=== PATIENT | female | born 1970 | race Hispanic/Latino ===

== ENCOUNTER 2016-12-26 06:32 | Day surgery (SDC) | payer OTHER ==
[2016-12-26] VITALS (9 sets, daily range): BP systolic 95–140; BP diastolic 48–74; PULSE 75–89; RESP 12–20; O2SAT 95–100
[~2016-12-26] VITALS: Ht 154.9 cm; Wt 88.2 kg
[~2016-12-26 06:32] MED LIST: CeFAZolin Inj 2 GM in IV Premix 1 EACH IV ONE
[2016-12-26] MEDS ORDERED: Propofol 10,000 mCg/mL 20 mL Inj ONE (06:33)
[2016-12-26] MEDS ORDERED: Dexamethasone 4 mg/mL Inj ONE (06:33)
[2016-12-26] MEDS ORDERED: Ondansetron 2 mg/mL 2 mL Inj ONE (06:33)
[2016-12-26] MEDS ORDERED: fentaNYL-PF 50 mCg/mL 2 mL Inj ONE ×2 (06:33→09:47)
[2016-12-26] MEDS: Lactated Ringer's 1,000 ML IV SCH ×2 (06:45→08:26)
--- NOTE | 2016-12-26 08:15 | PCM.HPANE ---
Patient Data Surgeon Admitting Provider: Attending Provider:Norbert Saha MD Primary Care Physician:Jocy Other Provider:Griffin Valera Anesthesia Reason for Visit Umbilica Hernia Ht/WT & BMI Height (Feet): 5 Height (Inches): 1.00 Weight (Kilograms): 88.200 Body Mass Index 36.00 Allergies Coded Allergies: Glyburide (Verified Allergy, 03/07/12) Past Anesthesia History Anesthesia History: Denies:: Anesthesia Reactions, Fam Anesthesia Reaction, Fam Malignant Hypertherm, Malignant Hyperthermia Diabetes History Hx Diabetes?: No MRSA MRSA: No Medications Hypertension Medication: No Home Meds Incl Beta Nati: No Discontinued Reported Medications Vit/Fe Fumarate/Fa-Expunged Drug, Do (-Expunged Drug, Do Not Renew!)1 Tab Tablet1 Tab PO DAILY 03/07/12 Ferrous Sulfate-Expunged Drug, Do Not Renew! (Feosol-Expunged Drug, Do Not Renew !)325 Mg [id number] ( Po Daily 03/07/12 History History of ENT Problems?: No HEENT History: Denies:: Hearing Problem Denture Type: None Teeth Condition: Within Normal Limits Hx of Heart Problems?: No Cardiovascular History: Positive for:: Irregular Heartbeat (occ palpitations - never sought treatment) Denies:: AICD Edema Heart Murmur Hypertension Pacemaker Peripheral Vascular Hx of Respiratory Problem?: No Respiratory History: Denies:: Asthma COPD Emphysema Oxygen Administration Pneumonia Tuberculosis Use of C-PAP Machine Hx Neurologic Problems?: No Neurological History: Denies:: CVA Headaches Multiple Sclerosis Parkinson's Disease Seizures Hx of GI Problems?: Yes Other GI Pertinent History: umbilical hernia current admission problem Hx of Problems?: No Genitourinary History: Denies:: Kidney Stones Urinary Tract Infection Female Hx: Denies:: Currently Problems with Breasts? Skin History: Denies:: History Skin Disorders? Pressure Ulcers Hx Musculoskeletal Problems?: No Musculoskeletal History: Denies:: Back Injury Fibromyalgia Joint Replacement Musculoskeletal Trauma Myasthenia Gravis Osteoarthritis Rheumatoid Arthritis Systemic Lupus Hx of Psycho/Social Problems?: No Psycho Social History: Denies:: Anxiety Hx Depression Hx Surgeries?: Yes (c sections x3, tubal, abdominoplasty) Hx Any Other Health Problems?: Yes Other History: Denies:: Cancer Thyroid Disease History Blood Transfusions: Positive for:: Accept Blood Products? Denies:: Blood Transfusions Hx Diabetes: No Hx Alcohol Use: YesAlcoholic Drinks Per Day: one drink monthlyHx Substance Use : NoHave You Smoked inLast 12 mo: No Stop/Bang Treated for Sleep Apnea?: No Do You Have a CPAP Machine?: No S-Snoring: Do You Snore Loudly: No T-Tired: feel tired, fatigued: No O-Obsered: Observed not breath: No P-Blood Pressure: treated: No B- Body Mass Index > 35 kg/m2: No A- Age over 50: No N- Neck Large Circumference: No G- Gender Male: No ELAINE Total Score: 0 Risk Assessment Category Category 1A: Patient has history of documented sleep apnea, and HAS NOT received any narcotic, sedative or anesthesia administration during this stay. Category 1B: Patient has history of documented sleep apnea, and HAS received any narcotic , sedative or anesthesia administration during this stay Category 2: Patient has SUSPECTED Obstructive Sleep Apnea, and HAS received any narcotic , sedative or anesthesia administration during this stay. Category 3: Patient has SUSPECTED Obstructive Sleep Apnea and HAS NOT received narcotic, sedative or anesthesia administration during this stay. Category 4: Outpatient in Procedural Areas with known sleep apnea or who screen positive for High Risk via the STOP/BANG questionnaire. Exam Exam Vital Signs Vital Signs Date Time Temp Pulse Resp B/P Pulse Ox O2 Delivery O2 Flow Rate FiO2 12/26/16 07:34 36.3 80 16 140/74 96 Room Air 12/26/16 06:54 36.3 80 16 140/74 96 Room Air General Appearance: Alert, Oriented X3, Cooperative HEENT/AIRWAY: MP 2 Lungs: Clear to Auscultation, Normal Air Movement Heart: Exam Unremarkable Meds/Labs/Diagnostics Admission Meds Current Medications Lactated Ringer's (Lr) 1,000 ml @ 120 mls/hr [id number] IV Last administered on t 06:45; Start 12/26/16 at 05:00; Stop 12/26/16 at 13:19 Plan Impression Patient chart reviewed, patient interviewed and anesthestic plan with risks, benefits, and alternatives discussed, and informed consent obtained. ASA Physical Status: ASA2 Mod Systemic Disease Anesthetic Plan: GA Bene/Risks/Altern/Consents: Yes HP Complete Prior to Induction: Yes Hilario Leonard MD Dec 26, 2016 08:15
[2016-12-26] MEDS ORDERED: Bupivacaine-MPF 0.5% W/EPI 30 mL Inj INFILTRATE ONE (08:35)
--- NOTE | 2016-12-26 09:24 | PCM.DISURG ---
Surgical Discharge Instruction Date of Service Dec 26, 2016 Dates of Hospitalization Date of Hospital Admission Providers Admitting Physician: Primary Care Physician: Jocy Attending Physician: Norbert Saha MD Discharge Diagnosis Discharge Diagnosis Incarcerated umbilical hernia Diet Discharge Diet: No restrictions Activity Discharge Activity-General: No lifting >15 pounds for 2 weeks Dressing and Incisional Care Dressing Care: Allow Steri Stripes to fall off, Remove outer dressing after 24 hrs Hygiene: May shower after (24 hours) Follow Up Plan Follow Up Plan In the general surgery [place] postop clinic in 2-3 weeks Call your provider for: Fever (over 101.5), Vomiting, Discharge @ incision, pus discharge Norbert Saha MD Dec 26, 2016 09:24
--- NOTE | 2016-12-26 09:30 | PCM.SURGOP ---
Surgical Operative Report Date of Service: Dec 26, 2016 Pre Operative Diagnosis Incarcerated umbilical hernia Post Operative Diagnosis Same Procedure: Umbilical hernia repair with mesh Surgeon and Game Advisor: Surgeon: Norbert Saha MD Assistants: Mauri Kwok PA-C Indication for Procedure 46-year-old woman who underwent abdominoplasty with umbilical resuspension in 2007. Over the past several years, she has had an increasingly painful umbilical hernia, not completely reducible. After discussion of risks and benefits, she agreed to proceed with umbilical hernia repair with mesh. Findings: The fascial defect was approximately 1 cm in diameter, containing incarcerated omental fat. A repair was performed using the large Bard Ventralex mesh. Procedure Details After smooth induction of general anesthesia with an LMA, the patient was placed in the supine position with both arms out, and was prepped and draped in wide sterile fashion. A procedural pause was performed according to the SCOAP checklist, and all were found to be in agreement. A curvilinear periumbilical incision was made, and extended slightly to the superior and inferior aspects because of her morbid obesity and large hernia contents. Dissection was carried down with electrocautery through the superficial subcutaneous tissue. The hernia contents were from the umbilical stalk. Because of her prior umbilical resuspension, I did not want to completely disconnect the umbilical stalk from the fascia. The hernia sac was opened. The hernia contained incarcerated omental fat. Most of the omental fat was excised and discarded, and the remainder was reduced through the fascial defect. The fascia was skeletonized. The fascial defect measured 1.0 cm in diameter. By palpation, there were no other hernia defects, and no significant intra-abdominal adhesions. A repair was performed using the Bard Ventralex mesh, size large. This was secured as an underlay using 0 Nurolon transfacial sutures in 4 quadrants. The tails of the mesh were cut. The mesh was in good position. The fascia was closed over the mesh transversely using interrupted 0 Nurolon sutures. The umbilical stalk did not need to be resuspended. The space was obliterated using interrupted 3-0 Vicryl sutures. The skin incision was closed with a running 4-0 Monocryl subcuticular stitch. Steri-Strips and sterile dressings were applied. At the end of the case all needle and sponge counts were correct 2. The patient was awakened from anesthesia without difficulty, and taken to the recovery room in satisfactory condition, having tolerated the procedure well. Complications There were no periprocedural complications identified. Surgical Specimen Removed: No Specimen sent to Pathology: Not applicable Anesthetic Plan: GA Grafts, Implants: Implants-See Implant Record Output, Estimated Blood Loss: 10 Blood Administration during cole: No Drains: None Catheters: None copies to: Blayne Valencia MD, Joshua D MD Dec 26, 2016 09:30
[2016-12-26] MEDS ORDERED: Lactated Ringer's 500 ML IV PRN (09:38)
[2016-12-26] MEDS ORDERED: Lactated Ringer's 1,000 ML IV SCH (09:38)
--- NOTE | 2016-12-26 09:38 | PCM.ANEP1 ---
Post Anesthesia Phase 1 PACU Phase 1 Assessment Date of Service: Dec 26, 2016 Vital Signs Vital Signs Date Time Temp Pulse Resp B/P Pulse Ox O2 Delivery O2 Flow Rate FiO2 12/26/16 07:34 36.3 80 16 140/74 96 Room Air 12/26/16 06:54 36.3 80 16 140/74 96 Room Air Anesthetic Administered: GA Level of Alertness: Sleepy, easy to arouse TORRES's with Equal Strength: Yes Pain: No Nausea or Vomiting: No Cardiovascular Function and Hy: Yes Oxygen Delivery: Simple Mask Lungs: Clear to Auscultation, Normal Air Movement Complications: No Hilario Leonard MD Dec 26, 2016 09:38
[2016-12-26] MEDS ORDERED: Dexamethasone 4 mg/mL Inj IVPUSH PRN (09:40)
[2016-12-26] MEDS ORDERED: MetoCLOpramide 5 mg/mL 2 mL Inj IVPUSH PRN (09:40)
[2016-12-26] MEDS ORDERED: Epinephrine Racemic 2.25% 0.5 mL Inhalation Solution NEB PRN (09:40)
[2016-12-26] MEDS ORDERED: Ondansetron 2 mg/mL 2 mL Inj IVPUSH PRN (09:40)
[2016-12-26] MEDS ORDERED: EPHEDrine Sulfate 50 mg/mL Inj IVPUSH PRN (09:40)
[2016-12-26] MEDS ORDERED: HYDROmorphone 1 mg/mL Inj IVPUSH PRN (09:40)
[2016-12-26] MEDS ORDERED: Phenylephrine 10,000 mCg/mL Inj IVPUSH PRN (09:40)
[2016-12-26] MEDS: fentaNYL-PF 50 mCg/mL 2 mL Inj IVPUSH PRN ×2 (09:51→09:55)
[2016-12-26] MEDS: HYDROcodone-APAP 5-325 mg Tablet PO PRN ×2 (10:13→11:14)
== END 2016-12-26 23:59 | disposition home or self-care (01) ==
LOC: SAS 06:32
PROVIDERS: ATTEND Student in an Organized Health Care Education/Training Program
DX: K42.0 Umbilical hernia with obstruction, without gangrene (principal); E66.9 Obesity, unspecified; Z68.36 Body mass index [BMI] 36.0-36.9, adult
CPT/HCPCS: 49587; C1781; J0690; J1100; J1885; J2250; J2405; J3010; J7120